=== PATIENT | female | born 1980 | race Caucasian/White ===

== ENCOUNTER → 2017-04-08 | Outpatient (CLI) | payer OTHER | LOC: FIMAGING 13:06 | PROVIDERS: ATTEND Family Medicine | DX: Z12.31 Encounter for screening mammogram for malignant neoplasm of breast (principal) ==

== ENCOUNTER → 2017-06-10 | Outpatient (CLI) | payer OTHER | LOC: BMCIMAGING 13:43 | PROVIDERS: ATTEND Family Medicine | DX: S29.9XXA Unspecified injury of thorax, initial encounter (principal); Y93.55 Activity, bike riding | CPT/HCPCS: 71101-PO ==